=== PATIENT | male | born 1945 | race Caucasian/White ===

== ENCOUNTER 2020-01-28 08:32 | Outpatient (CLI) | payer MEDICARE, SELFPAY ==
--- NOTE | ~2020-01-28 | CT_ITS ---
EXAMINATION: CT chest abdomen pelvis w con DATE: 01/28/2020 09:21 INDICATION: Metastatic kidney cancer TECHNIQUE: Transaxial computed tomographic images of the chest, abdomen, and pelvis were obtained aft er the administration of 100 cc of Omnipaque 350 intravenous contrast. The dose-length product (DLP) was 1705.07 mGy-cm. Automated exposure control and iterative reconstruction technique were employed. COMPARISON: 07/16/2019, 01/18/2019 FINDINGS: CHEST CT: Again seen are greater than 10 stable nodules scattered throughout the lungs. The largest measures 1. 6 x 1.3 cm in the right upper lobe. There is no pleural effusion or pneumothorax. Bulky bilateral hil ar lymphadenopathy is not significantly changed. The largest hilar lymph node is on the left and natanael ures 4.9 x 3.8 cm. The heart size is normal. There is no pleural effusion or pneumothorax. There is s evere thoracic spondylosis. ABDOMEN/PELVIS CT: Cysts of the liver measure up to 2.6 cm and the left hepatic lobe. The spleen, pancreas, and gallblad jenny are normal. There are changes of right nephrectomy. The left kidney is unremarkable. Stable right adrenal nodules measure up to 10 mm. Masses of the left adrenal gland have enlarged. Although diffic ult to individually measure, the adrenal gland measures 3.5 cm in maximum axial dimension, previously 2.8 cm. No pathologically enlarged abdominal or pelvic lymph nodes are identified. There is no free intraperitoneal gas or evidence of bowel obstruction. There is severe lumbar spondylosis. IMPRESSION: 1. Worsening metastatic disease of the left adrenal gland. Stable metastatic disease of the thorax an d right adrenal gland. Reviewed, dictated and finalized at location A. 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 Worsening metastatic disease of the left adrenal gland. Stable metastatic di sease of the thorax and right adrenal gland.
[2020-01-28 09:09] LABS: Blood Urea Nitrogen 19 mg/dL (8-26); Estimated Glomerular Filt Rate 54
== END 2020-01-28 08:33 | disposition home or self-care (01) ==
LOC: ANHIMG 08:42
PROVIDERS: PCP Family Medicine; Visit Provider Internal Medicine Medical Oncology
DX: C64.9 Malignant neoplasm of unspecified kidney, except renal pelvis (principal)
CPT/HCPCS: 71260; 74177; Q9967

== ENCOUNTER 2020-07-27 08:38 | Outpatient (CLI) | payer MEDICARE, SELFPAY ==
--- NOTE | ~2020-07-27 | CT_ITS ---
EXAMINATION: CT chest abdomen pelvis w con DATE: 07/27/2020 09:33 INDICATION: Kidney cancer with metastases TECHNIQUE: Computed tomography (CT) of the chest, abdomen, and pelvis was performed with 100 mL Omnip aque-350 intravenous contrast. Automated exposure control and iterative reconstruction technique were employed. The dose-length product was 1601.10 mGy-cm. COMPARISON: None FINDINGS: CHEST CT: No no significant interval change in multiple pulmonary nodules scattered throughout both lungs or of bulky mediastinal and bilateral hilar heterogeneously enhancing lymphadenopathy. For reference AP wi ndow lymph node previously measured 5.5 x 5.2 x 3.6 cm and currently measures 5.2 x 5.2 x 3.5 cm and corresponding dimensions. A right perihilar nodule previously measured 3.4 x 3.6 x 2.7 cm and current ly measures 3.5 x 3.7 x 2.8 cm in corresponding dimensions. No new pulmonary nodules identified. Ther e is likely mucous plugging and increasing secondary discoid atelectasis at the lingula. Heart size i s normal. Atherosclerotic coronary artery calcification. No pericardial or pleural effusion. Small sl iding-type hiatal hernia. Thoracic aorta is normal in caliber with no dissection. Severe thoracic spo ndylosis. No suspicious lytic or blastic bone lesions. ABDOMEN/PELVIS CT: Small sliding-type hiatal hernia. No interval change in multiple hepatic cysts the largest measuring 2.5 cm. Diffuse hepatic steatosis. Gallbladder, spleen and pancreas are normal. Multiple bilateral en hancing adrenal nodules which have increased in size since the prior study. For reference the more po sterior nodule in the right adrenal gland has increased from 1.2 x 1.6 cm currently measuring 1.6 x 2 .1 cm. The inferior most nodule at the left adrenal gland has increased from 3.6 x 2.4 cm to currentl y measuring 4.7 x 2.9 cm. Status post right nephrectomy with no evident local recurrence at the nephr ectomy bed. Multiple parapelvic cysts at the otherwise normal left kidney. There is moderate colonic diverticulosis descending and sigmoid colon predominance but without adjacent inflammatory change to suggest diverticulitis. Small bowel and appendix are normal. Bladder is normal. Prostatomegaly. No f ree intraperitoneal gas or fluid. No pathologically enlarged abdominal or pelvic lymphadenopathy. The re is calcified atherosclerosis of the aorta and many of the other arteries. Mild lumbar dextroscolio sis. Severe lumbar spondylosis including L5 spondylolysis with bilateral pars intra-articular is defe cts and 8 mm anterolisthesis on S1. No interval change in a lucent lesion at the left side of L2 whic h demonstrated intense T1 fat signal on prior MRI consistent with a hemangioma. No other suspicious l ytic or blastic bone lesions. IMPRESSION: 1. Progression of likely metastatic disease with enlargement of multiple bilateral adrenal masses. 2. No significant interval change in thoracic metastatic disease including multiple bilateral pulmona ry nodules and bulky mediastinal and bilateral hilar lymphadenopathy. Reviewed, dictated and finalized at location A. IMPRESSION: 1. Progression of likely metastatic disease with enlargement of multiple bilate ral adrenal masses. 2. No significant interval change in thoracic metastatic disease including mult iple bilateral pulmonary nodules and bulky mediastinal and bilateral hilar lymp hadenopathy.
[2020-07-27 09:21] LABS: Estimated Glomerular Filt Rate > 60
== END 2020-07-27 08:39 | disposition home or self-care (01) ==
PROVIDERS: PCP Family Medicine; Visit Provider Internal Medicine Medical Oncology
DX: C64.9 Malignant neoplasm of unspecified kidney, except renal pelvis (principal)
CPT/HCPCS: 71260; 74177; Q9967

== ENCOUNTER → 2020-11-03 10:42 | Outpatient (CLI) | payer MEDICARE, SELFPAY ==
--- NOTE | ~2020-11-03 | CT_ITS ---
EXAMINATION: CT chest abdomen pelvis w con EXAM DATE: 11/03/2020 11:23 INDICATION: malignant neoplasm of kidney with metastasis . TECHNIQUE: Spiral CT of the chest, abdomen and pelvis was performed following intravenous injection o f 100 mL Omnipaque 350. Axial, coronal and sagittal images were reviewed. Coronal maximum intensity pixel images of chest reviewed. The dose-length product (DLP) for this examination was 1450.38 mGy- cm. The exposure was tailored according to patient size (auto mA exposure control), and iterative re construction (ASIR) was used as additional dose reduction technique. Comparison is made to prior exam ination from 07/27/2020. FINDINGS: CHEST: Multiple pathologically enlarged bilateral hilar and prevascular lymph nodes, but now these ar e predominantly centrally hypodense, necrotic. One of the larger prevascular lymph nodes measures 4.4 x 3.4 cm (was 4.9 x 3.5). The other lymph nodes also demonstrated some decrease in size. There is 5 mm left upper lobe nodule likely metastatic lesion, decreased from 10 mm in size on previous exam. Sc attered other pulmonary nodules have significantly decreased in size as well. There are no pleural or pericardial effusions. Tracheobronchial tree is patent. There is no pneumothorax. Heart normal in size. There is mild coronary arterial calcification, arterial sclerosis. ABDOMEN PELVIS: There are liver cysts. No suspicious liver lesions. Spleen, pancreas are unremarkable . Interval decrease in size of bilateral adrenal metastases, for example now on the left 2 contiguous lesions measures 2.9 x 1.9 cm versus 3.7 x 3.1 cm on prior study. Gallbladder is unremarkable. No biliary obstruction. Status post right-sided nephrectomy. No left hydronephrosis. The prostate is u nremarkable. The bladder is unremarkable. There is no retroperitoneal or pelvic lymphadenopathy. There is mild scattered arteriosclerotic disease. The appendix is normal. There is small sliding gastroesophageal hiatal hernia. There is moderate sca ttered colonic diverticulosis. There is no adjacent inflammatory change to suggest diverticulitis. No free intraperitoneal gas. Small L2 lucency probably hemangioma correlating with prior studies. T here is advanced thoracolumbar spondylosis. IMPRESSION: 1. Significant decrease in size of pulmonary metastases. 2. Mild decrease in size of mediastinal, hilar lymphadenopathy, and with development of extensive n ecrosis compared to solid appearance on prior study. 3. Decrease in size of bilateral necrotic adrenal metastases. Reviewed, dictated and finalized at location A. BAND ATTACHER IMPRESSION: 1. Significant decrease in size of pulmonary metastases. 2. Mild decrease in size of mediastinal, hilar lymphadenopathy, and with devel opment of extensive necrosis compared to solid appearance on prior study. 3. Decrease in size of bilateral necrotic adrenal metastases.
[2020-11-03 11:11] LABS: Estimated Glomerular Filt Rate > 60
== END ==
PROVIDERS: PCP Family Medicine; Visit Provider Internal Medicine Medical Oncology
DX: C64.9 Malignant neoplasm of unspecified kidney, except renal pelvis (principal); R91.8 Other nonspecific abnormal finding of lung field
CPT/HCPCS: 71260; 74177; Q9967

== ENCOUNTER 2021-01-19 06:47 | Outpatient (CLI) | payer MEDICARE, SELFPAY ==
--- NOTE | ~2021-01-19 | CT_ITS ---
EXAMINATION: CT chest abdomen pelvis w con DATE: 01/19/2021 07:27 INDICATION: Restaging of malignant renal neoplasm with metastasis TECHNIQUE: Computed tomography (CT) of the chest, abdomen, and pelvis was performed with 100 cc Omnip aque 350 intravenous contrast. Automated exposure control and iterative reconstruction technique were employed. Exam dose: 1598.89 mGy-cm total exam DLP. COMPARISON: 10/2020 CT chest abdomen pelvis FINDINGS: CHEST CT: There is interval mild improvement of mediastinal and bilateral hilar necrotic lymphadenopathy since 10/2020 including left prevascular lymph node mass measuring 3 x 4.2 cm currently compared to 3.3 x 4.5 cm on 10/2020, left hilar node measuring 12.6 x 19 mm currently compared to 14.9 x 22 mm on 2019 and right hilar lymphadenopathy measuring 24.6 x 31.4 mm currently, compared to 25 x 33.9 mm on 10/2020. Normal heart size. Trace pericardial effusion. No thoracic aortic aneurysm or dissection. There is interval severe stenosis of the left subclavian vein apparently due to thrombosis. The left brachiocephalic vein largely fills by collateral vessels. ABDOMEN/PELVIS CT: Multiple hepatic cysts are again noted, the largest in the lateral segment left hepatic lobe, measuri ng up to 2.4 cm dimension. No interval hepatic space-occupying mass lesion is evident. Normal splenic size. No pancreatic mass lesion, calcification or ductal dilatation. The gallbladder is unremarkable. No bile duct dilatation. Diminished size of left adrenal metastases since 11/03/2020. Right adrenal gland is unremarkable. Status post right nephrectomy. No soft tissue mass lesion is evident in the right nephrectomy bed. No left renal mass lesion is evident. No left urinary tract calculus or hydroureteronephrosis. The bladder is relatively evacuated with relatively high attenuation and 27 Hounsfield units of the b ladder contents. There is prostate enlargement. There is atherosclerotic calcification of the abdominal aorta but no abdominal aortic aneurysm. There are 2 left renal arteries. No intraperitoneal or retroperitoneal or pelvic mass lesion or adenopathy or ascites is evident. Small sliding hiatal hernia. No bowel obstruction, bowel wall thickening, pneumatosis or intraperiton eal free air. There are numerous diverticula primarily of the sigmoid and descending colon; no CT evidence of diver ticulitis. No evidence of appendicitis. Small fat-containing left inguinal hernia. Small fat-containing umbilical hernia. Degenerative disc disease in the lower cervical spine. Diffuse idiopathic skeletal hyperostosis of th e thoracic spine. Bilateral L5 pars interarticularis defects with grade 2 anterolisthesis and severe degenerative disc disease at L5-S1. There is very severe degenerative disc disease at T12-L1 and especially L1-2 and L2-3, with associate d mild retrolisthesis at L1-2 and L2-3. Moderately severe degenerative disc disease at L3-4. 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 Reviewed, dictated and finalized at location B. 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
[2021-01-19 07:17] LABS: Estimated Glomerular Filt Rate > 60
== END 2021-01-19 06:48 | disposition home or self-care (01) ==
PROVIDERS: PCP Family Medicine Adolescent Medicine; Visit Provider Internal Medicine Medical Oncology
DX: C64.9 Malignant neoplasm of unspecified kidney, except renal pelvis (principal); K76.9 Liver disease, unspecified; K44.9 Diaphragmatic hernia without obstruction or gangrene; K57.30 Diverticulosis of large intestine without perforation or abscess without bleeding; M51.36 Other intervertebral disc degeneration, lumbar region; M51.34 Other intervertebral disc degeneration, thoracic region; M50.30 Other cervical disc degeneration, unspecified cervical region
CPT/HCPCS: 71260; 74177; Q9967

== ENCOUNTER 2021-02-08 14:19 | Outpatient (CLI) | payer MEDICARE, SELFPAY ==
--- NOTE | ~2021-02-08 | US_ITS ---
EXAMINATION: US venous doppler UE DATE: 02/08/2021 15:11 INDICATION: Left upper extremity pain TECHNIQUE: Alonso scale images with and without compression and Doppler images of the left upper extrem ity veins were obtained. COMPARISON: None. FINDINGS: The left internal jugular vein, subclavian vein, axillary vein, brachial veins, basilic vein, cephali c vein, radial vein, and ulnar vein are patent.] IMPRESSION: 1. Patent left upper extremity veins. No evidence of deep venous thrombosis. Reviewed, dictated and finalized at location A. CLUTCH REBUILDER
== END 2021-02-08 14:20 | disposition home or self-care (01) ==
PROVIDERS: PCP Family Medicine Adolescent Medicine; Visit Provider Internal Medicine Medical Oncology
DX: M79.602 Pain in left arm (principal); I82.90 Acute embolism and thrombosis of unspecified vein
CPT/HCPCS: 93971

== ENCOUNTER 2021-04-23 07:25 | Outpatient (CLI) | payer MEDICARE, SELFPAY ==
--- NOTE | ~2021-04-23 | CT_ITS ---
EXAMINATION: CT chest abdomen pelvis w con DATE: 04/23/2021 08:05 INDICATION: Primary malignant neoplasm of the kidney with metastases TECHNIQUE: Transaxial computed tomographic images of the chest, abdomen, and pelvis were obtained aft er the administration of 100 cc of Omnipaque 350 intravenous contrast. The dose-length product (DLP) was 1493.28 mGy-cm. Automated exposure control and iterative reconstruction technique were employed. COMPARISON: 01/19/2021 FINDINGS: CHEST CT: There are multiple stable nodules scattered throughout the lungs. The largest measures 8 mm in the ri ght upper lobe on image 36. Bulky mediastinal and bilateral hilar lymphadenopathy is unchanged. There are patchy opacities of the lingula and lower lobes, likely infectious or inflammatory. There is no pleural effusion or pneumothorax. The heart size is normal. Calcified atherosclerosis is noted. There is severe thoracic spondylosis. ABDOMEN/PELVIS CT: There are changes of right nephrectomy. Cysts of the liver measure up to 2.6 cm in the left hepatic l obe. The spleen, pancreas, and gallbladder are normal. Masses of the left adrenal gland are stable an d measure up to 2.6 cm. The right adrenal gland is unremarkable. The left kidney is normal. A retroao rtic left renal vein is noted. No pathologically enlarged abdominal or pelvic lymph nodes are identif ied. There is no free intraperitoneal gas or evidence of bowel obstruction. The appendix is normal. T here is severe lumbar spondylosis. There are bilateral L5 pars defects with grade 1 anterolisthesis o f L5 on S1. IMPRESSION: 1. Stable metastatic disease involving the lungs, mediastinal and bilateral hilar lymph nodes, and th e left adrenal gland. Reviewed, dictated and finalized at location A. IMPRESSION: 1. Stable metastatic disease involving the lungs, mediastinal and bilateral hil ar lymph nodes, and the left adrenal gland.
[2021-04-23 13:16] LABS: Estimated Glomerular Filt Rate > 60
== END 2021-04-23 07:26 | disposition home or self-care (01) ==
PROVIDERS: PCP Family Medicine Adolescent Medicine; Visit Provider Internal Medicine Medical Oncology
DX: C64.9 Malignant neoplasm of unspecified kidney, except renal pelvis (principal)
CPT/HCPCS: 71260; 74177; Q9967

== ENCOUNTER 2021-04-25 13:50 | Outpatient (CLI) | payer MEDICARE, SELFPAY ==
[2021-04-25 14:34] LABS: Basophils Percent Auto 0.6 % (0.2-1.2); Eosinophils Absolute Auto 0.2 K/mm3 (0-0.3); Eosinophils Percent Auto 3.2 % (0-4.4); Hematocrit 41.5 % (42.0-52.0); Hemoglobin 13.9 g/dL (14.0-18.0); Immature Granulocyte Absolute 0.02 K/mm3 (0.00-0.031); Immature Granulocyte Percent A 0.4 % (0-0.5); Lymphocytes Absolute Auto 1.64 K/mm3 (0.9-3.2); Lymphocytes Percent Auto 32.9 % (18.3-44.2); Mean Corpuscular HGB Conc 33.5 g/dl (32-36); Mean Corpuscular Hemoglobin 34.6 pg (26-34); Mean Corpuscular Volume 103.2 fl (80-100); Monocytes Absolute Auto 0.5 K/mm3 (0.1-0.6); Monocytes Percent Auto 10.8 % (2.6-8.5); Neutrophils Absolute Auto 2.6 K/mm3 (1.3-6.7); Neutrophils Percent Auto 52.1 % (45.5-73.1); Platelet Count Result 155 k/mm3 (150-375); Red Blood Count 4.02 M/mm3 (4.6-6.20); Red Cell Distribution Width 13.7 % (11.5-14.5)
[2021-04-25 14:48] LABS: Alanine Aminotransferase 24 U/L (4-50); Albumin Level 3.8 g/dL (3.5-5.1); Alkaline Phosphatase 85 U/L (38-126); Anion Gap 7 mmol/L (8-16); Aspartate Amino Transferase 30 U/L (17-59); Bilirubin,Total 0.6 mg/dL (0.2-1.3); Blood Urea Nitrogen 17 mg/dL (9-20); Calcium 8.9 mg/dL (8.4-10.2); Carbon Dioxide 28 mmol/L (22-30); Chloride 104 mmol/L (98-107); Estimated Glomerular Filt Rate > 60; Glucose 96 mg/dL (75-110); Potassium 4.2 mmol/L (3.4-5.0); Sodium 139 mmol/L (137-145)
== END 2021-04-25 13:51 | disposition home or self-care (01) ==
LOC: ANHLAB 13:53
PROVIDERS: PCP Family Medicine Adolescent Medicine; Visit Provider Internal Medicine Medical Oncology
DX: C64.9 Malignant neoplasm of unspecified kidney, except renal pelvis (principal)
CPT/HCPCS: 36415; 80053; 85025

== ENCOUNTER 2021-06-22 15:09 | Outpatient (CLI) | payer MEDICARE, SELFPAY ==
--- NOTE | ~2021-06-22 | XR_ITS ---
XR knee RT min 4V DATE: 06/22/2021 15:51 INDICATION: Two-year checkup. Right total knee arthroplasty TECHNIQUE: [place], standing AP, PA and lateral views COMPARISON: None FINDINGS: Status post right total knee arthroplasty with patellar resurfacing. No fracture or dislocation or joint effusion. No periosteal reaction or bone destruction. IMPRESSION: Right total knee arthroplasty Reviewed, dictated and finalized at location A.
--- NOTE | ~2021-06-22 | XR_ITS ---
XR knee LT min 4V DATE: 06/22/2021 15:51 INDICATION: Two-year checkup, left total knee arthroplasty TECHNIQUE: [place], standing AP, PA and lateral views COMPARISON: 04/19/2014 left knee FINDINGS: Status post left total knee arthroplasty with patellar resurfacing. No fracture or dislocation or joint effusion, periosteal reaction or bone destruction. IMPRESSION: Left total knee arthroplasty Reviewed, dictated and finalized at location A.
== END 2021-06-22 15:10 | disposition home or self-care (01) ==
PROVIDERS: PCP Family Medicine Adolescent Medicine; Visit Provider Orthopaedic Surgery
DX: Z09 Encounter for follow-up examination after completed treatment for conditions other than malignant neoplasm (principal)
CPT/HCPCS: 73564

== ENCOUNTER 2021-07-16 08:03 | Outpatient (CLI) | payer MEDICARE, SELFPAY ==
--- NOTE | ~2021-07-16 | CT_ITS ---
EXAMINATION: CT chest abdomen pelvis w con DATE: 07/16/2021 08:37 INDICATION: Malignant neoplasm of the kidney with metastatic disease. TECHNIQUE: Computed tomography (CT) of the chest, abdomen, and pelvis was performed with 100 mL Omnip aque-350 intravenous contrast. Automated exposure control and iterative reconstruction technique were employed. The dose-length product was 1495.50 mGy-cm. COMPARISON: 04/23/2021 and 07/27/2020 FINDINGS: CHEST CT: There are several scattered subcentimeter bilateral pulmonary nodules which are without significant i nterval change but which are decreased since study dated 07/27/20. Thin linear bands of likely discoid atelectasis, though within in the right middle lobe and with thicker band at the lingula. Small calc ified left lower lobe nodule consistent with old granulomatous disease. No interval change in multipl e heterogeneously enhancing, centrally necrotic bilateral hilar and mediastinal lymph nodes, the larg est a 4.7 x 3.4 cm prevascular lymph node along the pulmonary outflow tract, 4.4 x 3.6 cm at the left hilum and 2.8 x 2.5 cm and 2.9 x 2.7 cm at the right hilum. The enhancing soft tissue components of the enlarged lymph nodes have significantly decreased since 07/27/2020. Heart size is normal. Atherosc lerotic coronary artery calcification. Very small pericardial effusion. No pleural effusion. Thoracic aorta is normal in caliber with no dissection. Small sliding-type hiatal hernia. Mild thoracic kypho sis with severe spondylosis. ABDOMEN/PELVIS CT: Multiple well-defined low-attenuation likely hepatic cysts the largest measuring 2.6 cm . Gallbladder , spleen, pancreas and left kidney are normal. Status post right nephrectomy. Multiple cystic nodules at the left adrenal gland, the largest measuring up to 2.6 cm. Unchanged mild nodular thickening of the right adrenal gland. Both appear significantly decreased compared with CT dated 07/27/2020 consist ent with response to treatment of metastatic disease. Small bowel and appendix are normal. There is p rominent diverticulosis along the sigmoid and descending colon without adjacent inflammatory change t o suggest diverticulitis. Mild fatty infiltration of the bladder wall. Prostatomegaly. No free intrap eritoneal gas or fluid. No pathologically enlarged abdominal or pelvic lymphadenopathy. Small fat-con taining left inguinal hernia. Severe lumbar spondylosis. L5 spondylolysis with bilateral pars intra-a rticular is defects and 9 mm anterolisthesis on S1. IMPRESSION: 1. Significant interval change in multiple pulmonary nodules, mediastinal and bilateral hilar lymph n odes and bilateral adrenal nodules all of which are a decrease in size or in the degree of soft tissu e component since study dated 07/27/20 consistent with stable treated metastatic disease. 2. Status post right nephrectomy for reported renal cell carcinoma. 3. Diverticulosis. 4. Small sliding-type hiatal hernia. Reviewed, dictated and finalized at location A. IMPRESSION: 1. Significant interval change in multiple pulmonary nodules, mediastinal and b ilateral hilar lymph nodes and bilateral adrenal nodules all of which are a dec rease in size or in the degree of soft tissue component since study dated consistent with stable treated metastatic disease. 2. Status post right nephrectomy for reported renal cell carcinoma. 3. Diverticulosis. 4. Small sliding-type hiatal hernia.
[2021-07-16 08:35] LABS: Estimated Glomerular Filt Rate > 60
== END 2021-07-16 08:04 | disposition home or self-care (01) ==
PROVIDERS: PCP Family Medicine Adolescent Medicine; Visit Provider Internal Medicine Medical Oncology
DX: C64.9 Malignant neoplasm of unspecified kidney, except renal pelvis (principal); K57.30 Diverticulosis of large intestine without perforation or abscess without bleeding; K44.9 Diaphragmatic hernia without obstruction or gangrene; R91.8 Other nonspecific abnormal finding of lung field
CPT/HCPCS: 71260; 74177; Q9967

== ENCOUNTER 2021-10-05 06:58 | Outpatient (CLI) | payer MEDICARE, SELFPAY ==
--- NOTE | ~2021-10-05 | CT_ITS ---
EXAMINATION: CT chest abdomen pelvis w con DATE: 10/05/2021 07:38 INDICATION: Malignant neoplasm of the kidney TECHNIQUE: Transaxial computed tomographic images of the chest, abdomen, and pelvis were obtained aft er the administration of 100 cc of Omnipaque 350 intravenous contrast. The dose-length product (DLP) was 1426.81 mGy-cm. Automated exposure control and iterative reconstruction technique were employed. COMPARISON: 07/16/2021 FINDINGS: CHEST CT: Again seen are multiple stable pulmonary nodules scattered throughout the lungs, the largest of which measures 8 mm in the right upper lobe on image 36. No new pulmonary nodules are identified. There is stable bulky bilateral hilar and mediastinal lymphadenopathy. The heart size is normal. Calcified at herosclerosis is noted. There is severe thoracic spondylosis. ABDOMEN/PELVIS CT: There are changes of right nephrectomy. Cysts of the liver measure up to 2.3 cm in the left hepatic l obe. The spleen, pancreas, gallbladder, and right adrenal gland are normal. Stable masses of the left adrenal gland measure up to 2.6 cm. The left kidney is unremarkable. There is calcified atherosclero sis of the aorta and many of the other arteries. No pathologically enlarged abdominal or pelvic lymph nodes are identified. There is no free intraperitoneal gas or evidence of bowel obstruction. The gisela endix is normal. There are bilateral L5 pars defects with grade 1 anterolisthesis of L5 on S1. There is severe lumbar spondylosis. A tiny fat-containing umbilical hernia is noted. IMPRESSION: 1. Stable metastatic disease involving the lungs, mediastinal and hilar lymph nodes, and left adrenal gland. Reviewed, dictated and finalized at location B. IMPRESSION: 1. Stable metastatic disease involving the lungs, mediastinal and hilar lymph n odes, and left adrenal gland.
[2021-10-05 07:28] LABS: Estimated Glomerular Filt Rate > 60
== END 2021-10-05 06:59 | disposition home or self-care (01) ==
PROVIDERS: PCP Family Medicine Adolescent Medicine; Visit Provider Internal Medicine Medical Oncology
DX: C64.9 Malignant neoplasm of unspecified kidney, except renal pelvis (principal); C78.00 Secondary malignant neoplasm of unspecified lung
CPT/HCPCS: 71260; 74177; Q9967

== ENCOUNTER 2021-12-26 10:43 | Outpatient (CLI) | payer MEDICARE, SELFPAY ==
--- NOTE | ~2021-12-26 | CT_ITS ---
EXAMINATION: CT diagnostic chest wo con DATE: 12/26/2021 11:09 INDICATION: Pulmonary masses follow-up; primary malignant neoplasm of the kidney with metastases TECHNIQUE: Computed tomography (CT) of the chest was performed without intravenous contrast. Automate d exposure control and iterative reconstruction technique were employed. Exam dose: 357.51 mGy-cm to ascencion exam DLP. COMPARISON: 10/05/2021 CT chest abdomen pelvis FINDINGS: There are scattered bilateral pulmonary nodules which are stable or minimally diminished in size since 10/05/2021. No interval pulmonary mass lesion is evident. Mild improvement of atelectasis in the lingula and stable focal atelectasis and/or infiltrate in the posterior basilar right lower lobe. Stable prevascular and aortopulmonary window and bilateral hilar adenopathy with areas of necrosis as well as some calcifications again noted. Normal heart size. No thoracic aortic aneurysm or dissection. Coronary artery calcification. Stable hepatic cysts. Small sliding hiatal hernia. Stable left adrenal masses. Prominent degenerative disc disease in the lower cervical spine. Diffuse idiopathic skeletal hyperostosis of the thoracic spine. Severe degenerative disc disease at t he included upper lumbar spine. IMPRESSION: Stable and slightly improved bilateral pulmonary nodules since 10/05/2021 Stable aortopulmonary window, prevascular bilateral lymphadenopathy and left adrenal masses since 10/05/2021 Reviewed, dictated and finalized at Location [facility]. Reviewed, dictated and finalized at location A. 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
== END 2021-12-26 10:44 | disposition home or self-care (01) ==
PROVIDERS: PCP Family Medicine Adolescent Medicine; Visit Provider Internal Medicine Medical Oncology
DX: R91.8 Other nonspecific abnormal finding of lung field (principal)
CPT/HCPCS: 71250

== ENCOUNTER 2022-02-22 07:32 | Outpatient (CLI) | payer MEDICARE, SELFPAY ==
--- NOTE | ~2022-02-22 | CT_ITS ---
EXAMINATION: CT chest abdomen pelvis w con DATE: 02/22/2022 08:13 INDICATION: Malignant neoplasm of the kidney and lung TECHNIQUE: Transaxial computed tomographic images of the chest, abdomen, and pelvis were obtained aft er the administration of 100 cc of Omnipaque 350 intravenous contrast. The dose-length product (DLP) was 3429.47 mGy-cm. Automated exposure control and iterative reconstruction technique were employed. COMPARISON: 12/26/2021, 10/05/2021 FINDINGS: CHEST CT: Multiple stable pulmonary nodules are again noted scattered throughout the lungs, the largest of whic h measures 7 mm in the right upper lobe. No new pulmonary nodules are identified. Bilateral hilar and mediastinal lymphadenopathy persists. There is slight decrease in size of an aorticopulmonary window lymph node which measures 4.2 cm, previously 4.6 cm. The heart size is normal. There are trace pleur al effusions. No pneumothorax is identified. Calcified coronary artery atherosclerosis is noted. Ther e is severe thoracic spondylosis. ABDOMEN/PELVIS CT: Cysts of the liver measure up to 2.3 cm in the left hepatic lobe. There is a small sliding hiatal her delfina. The spleen, pancreas, gallbladder, and right adrenal gland are normal. There are changes of righ t nephrectomy. There are masses of the left adrenal gland which measure up to 2.1 cm, previously 2.6 cm. The left kidney is unremarkable. No pathologically enlarged abdominal or pelvic lymph nodes are i dentified. There is calcified atherosclerosis of the aorta and many of the other arteries. There is n o free intraperitoneal gas or evidence of bowel obstruction. Bilateral L5 pars defects are again note d with grade 1 anterolisthesis of L5 on S1. There is severe lumbar spondylosis. IMPRESSION: 1. Metastatic disease involving the lungs, mediastinal and hilar lymph nodes, and left adrenal gland with slight decrease in size of adrenal masses and aorticopulmonary window lymph nodes. Reviewed, dictated and finalized at location B. IMPRESSION: 1. Metastatic disease involving the lungs, mediastinal and hilar lymph nodes, a nd left adrenal gland with slight decrease in size of adrenal masses and aortic opulmonary window lymph nodes.
[2022-02-22 07:55] LABS: Estimated Glomerular Filt Rate > 60
== END 2022-02-22 07:33 | disposition home or self-care (01) ==
LOC: ANHIMG 07:37
PROVIDERS: PCP Family Medicine Adolescent Medicine; Visit Provider Internal Medicine Medical Oncology
DX: C64.9 Malignant neoplasm of unspecified kidney, except renal pelvis (principal); C78.01 Secondary malignant neoplasm of right lung; C78.02 Secondary malignant neoplasm of left lung
CPT/HCPCS: 71260; 74177; Q9967

== ENCOUNTER 2022-04-15 08:20 | Emergency (ER) | payer MEDICARE, SELFPAY ==
--- NOTE | ~2022-04-15 | XR_ITS ---
EXAMINATION: XR chest 1V INDICATION: Weakness TECHNIQUE: AP view of the chest is obtained. COMPARISON: CT, 02/22/2022 FINDINGS: There are minimal airspace opacities of the left lung base. There is no pleural effusion or pneumothorax. The heart size is normal. Bilateral hilar lymphadenopathy persists. The visualized oss eous structures are unremarkable. IMPRESSION: 1. Mild atelectasis of the left lung base. 2. Bilateral hilar lymphadenopathy, consistent with metastatic disease. Reviewed, dictated and finalized at location A.
--- NOTE | ~2022-04-15 | CT_ITS ---
EXAMINATION: CTA brain carotid DATE: 04/15/2022 09:25 INDICATION: Weakness in the legs. TECHNIQUE: Computed tomographic angiography (CTA) of the head was performed without and with 100 mL O mnipaque-350 intravenous contrast. CTA of the neck was performed with intravenous contrast. Automated exposure control and iterative reconstruction technique were employed. The dose-length product was 1 934.15 mGy-cm. Maximum intensity projection and volume rendered 3D-reconstructions were created by florencia martinez technologist on a separate workstation. COMPARISON: Chest CT 02/22/2022 FINDINGS: HEAD CTA: There are areas of low-attenuation in the white matter of the medial posterior frontal lobe s bilaterally. There is no intracranial hemorrhage, acute infarction, or abnormal intracranial mass l esion. The ventricles are normal in size. There is mucosal thickening in the paranasal sinuses. The o rbits are normal. There is a trace right mastoid effusion. The vertebral arteries are codominant. The re is no significant stenosis of basilar artery or the posterior cerebral arteries. There is no signi ficant stenosis of the intracranial internal carotid arteries or anterior or middle cerebral arteries . Anterior communicating artery is normal. Posterior communicating arteries are not identified. There is no aneurysm. NECK CTA: There is a 7 mm nodule in left lung upper lobe. There is a 5 mm nodule at left lung upper l obe. There are no pathologically enlarged lymph nodes. There is no significant stenosis of the verteb ral arteries. There is mild plaque in the proximal internal carotid arteries. There is 0% stenosis of the proximal right internal carotid artery relative to normal distal artery lumen diameter (NASCET c riteria). There is 0% stenosis of the proximal left internal carotid artery relative to normal distal artery lumen diameter. There is severe cervical spondylosis. IMPRESSION: 1. Low-attenuation in the white matter of the medial posterior frontal lobes bilaterally, which may b e seen with mild chronic small vessel ischemic disease, vasogenic edema from occult metastatic diseas e, or age-indeterminate infarcts. Brain MRI without and with contrast is recommended. 2. No aneurysm or significant intracranial arterial stenosis. 3. Stable pulmonary nodules, consistent with metastatic disease. 4. 0% stenosis of the proximal internal carotid arteries relative to normal distal artery lumen diame ters (NASCET criteria). Reviewed, dictated and finalized at location B. IMPRESSION: 1. Low-attenuation in the white matter of the medial posterior frontal lobes bi laterally, which may be seen with mild chronic small vessel ischemic disease, v asogenic edema from occult metastatic disease, or age-indeterminate infarcts. B rain MRI without and with contrast is recommended. 2. No aneurysm or significant intracranial arterial stenosis. 3. Stable pulmonary nodules, consistent with metastatic disease. 4. 0% stenosis of the proximal internal carotid arteries relative to normal dis ascencion artery lumen diameters (NASCET criteria).
--- NOTE | 2022-04-15 08:25 | PC.NURSE ---
Patient brought to stroke stop by Cat, sign poster d/t nature of cc. Patient evaluated by Dr. Vargas who decided against called a code stroke at this time.
[2022-04-15 08:32] VITALS: BP 181/90; PULSE 67; RESP 17; TEMP 36.6; O2SAT 99
--- NOTE | 2022-04-15 08:40 | ECG_ITS ---
Measurements Intervals [place] Rate: 59 P: 24 DC: 173 QRS: -48 QRSD: 116 T: 20 QT: 436 QTc: 433 Interpretive Statements SINUS BRADYCARDIA LEFT ANTERIOR FASCICULAR BLOCK ABNORMAL ECG Electronically Signed On 04-15-2022 9:06:13 CDT by Rafael Dunn D.O.
[2022-04-15 08:41] VITALS: BP 174/84; PULSE 66; RESP 13
--- NOTE | 2022-04-15 08:50 | PC.NURSE ---
BS 120
[2022-04-15 08:57] LABS: Basophils Absolute Auto 0.1 K/mm3 (0.0-0.1); Basophils Percent Auto 1.2 % (0.2-1.2); Eosinophils Absolute Auto 0.4 K/mm3 (0-0.3); Eosinophils Percent Auto 7.1 % (0-4.4); Hematocrit 42.7 % (42.0-52.0); Hemoglobin 13.8 g/dL (14.0-18.0); Immature Granulocyte Absolute 0.04 K/mm3 (0.00-0.031); Immature Granulocyte Percent A 0.7 % (0-0.5); Lymphocytes Absolute Auto 1.77 K/mm3 (0.9-3.2); Lymphocytes Percent Auto 30.5 % (18.3-44.2); Mean Corpuscular HGB Conc 32.3 g/dl (32-36); Mean Corpuscular Hemoglobin 31.9 pg (26-34); Mean Corpuscular Volume 98.8 fl (80-100); Monocytes Absolute Auto 0.5 K/mm3 (0.1-0.6); Monocytes Percent Auto 9.1 % (2.6-8.5); Neutrophils Percent Auto 51.4 % (45.5-73.1); Platelet Count Result 174 k/mm3 (150-375); Red Blood Count 4.32 M/mm3 (4.6-6.20); Red Cell Distribution Width 15.3 % (11.5-14.5); White Blood Count 5.8 K/mm3 (4.5-10.0)
[2022-04-15 09:01] VITALS: BP 174/84; PULSE 66; RESP 13; O2SAT 98
[2022-04-15 09:08] LABS: Alanine Aminotransferase 28 U/L (6-50); Albumin Level 3.7 g/dL (3.5-5.1); Alkaline Phosphatase 91 U/L (38-126); Anion Gap 4 mmol/L (8-16); Aspartate Amino Transferase 37 U/L (17-59); Bilirubin,Total 0.4 mg/dL (0.2-1.3); Blood Urea Nitrogen 14 mg/dL (9-20); Calcium 8.1 mg/dL (8.4-10.2); Carbon Dioxide 27 mmol/L (22-30); Chloride 106 mmol/L (98-107); Estimated CRCL calculation 71 ml/min; Estimated Glomerular Filt Rate > 60; Glucose 109 mg/dL (65-110); Potassium 3.8 mmol/L (3.4-5.0); Sodium 137 mmol/L (137-145)
[2022-04-15 09:20] LABS: Troponin I < 0.012 ng/mL (0.000-0.034)
--- NOTE | 2022-04-15 09:23 | PC.NURSE ---
Pt to XRAY/CT SCAN via stretcher at this time.
[2022-04-15 09:25] LABS: INR 1.1; Prothrombin Time 14.1 Seconds (11.1-14.7)
[2022-04-15] MEDS: MECLIZINE HCL 25 MG TABLET PO (09:27)
[2022-04-15 09:29] VITALS: BP 153/71; PULSE 79; RESP 12; O2SAT 99
--- NOTE | 2022-04-15 09:32 | PC.NURSE ---
Attempted to reach x2 per pt request to notify her he is here. Her name is Mee and phone given per is [phone], no answer via this number and no place to leave .
[2022-04-15 09:56] VITALS: BP 143/80; PULSE 57; RESP 20; O2SAT 97
[2022-04-15 10:34] LABS: Appearance Urine Clear (Clear); Bilirubin Urine Negative (Negative); Blood Urine Negative (Negative); Color Urine Yellow (Yellow); Glucose Urine UA Negative (Negative); Ketones Urine Negative (Negative); Leukocyte Esterase Ur Negative LEU/UL (Negative); Nitrate Urine Negative (Negative); Protein Urine Trace mg/dL (Negative)
--- NOTE | 2022-04-15 10:40 | ED.NEUROSD ---
HPI - Neuro Symptoms/Deficit General Chief Complaint: Neuro Symptoms/Deficit Stated Complaint: Balance Issues, Leg Heavyness Time Seen by Provider: 04/15/22 08:36 Source: patient History of Present Illness HPI Narrative: Patient presents with dizziness described sensation of feeling off balance as well as lower extremity heaviness. Reports she has intermittent symptoms like this and feels its related to his chemotherapy medications as well as his prostate medications as it has been a known side effect. Today symptoms seem more severe than usual and so he came to the ER for further evaluation. He reports chronic paresthesias in his toes but no acute changes he denies focal weakness slurring of his words or syncope. Denies any chest pain or headache. Denies any recent fevers, cough, congestion. Related Data Home Medications Medication Instructions Recorded Confirmed finasteride 5 mg tablet 5 mg PO DAILY 08/09/20 08/09/20 pazopanib 200 mg tablet 200 mg PO DAILY 08/09/20 08/09/20 tamsulosin 0.4 mg capsule 0.4 mg PO DAILY 08/09/20 08/09/20 triamcinolone acetonide 55 mcg 1 spray NASAL DAILY 08/09/20 08/09/20 nasal spray aerosol cabozantinib [Cabometyx] mg PO 04/15/22 Allergies Allergy/AdvReac Type Severity Reaction Status Date / Time cefdinir Allergy Unknown Unknown Verified 04/15/22 08:52 Cephalosporins Allergy Unknown Unknown Verified 04/15/22 08:52 Penicillins Allergy Unknown Unknown Verified 04/15/22 08:52 Review of Systems Review of Systems: CONSTITUTIONAL: Denies fever, chills, or sweats. EYES: Denies visual changes, redness, or discharge. ENT: Denies rhinorrhea, congestion, sore throat, or otalgia. CARDIOVASCULAR: Denies chest pain, palpitations, or edema. RESPIRATORY: Denies cough or dyspnea. GASTROINTESTINAL: Denies abdominal pain, nausea, vomiting, or diarrhea. GENITOURINARY: Denies dysuria or hematuria. SKIN: Denies rash or itching. MUSCULOSKELETAL: Denies back pain, joint pain, or myalgia. NEUROLOGIC: Denies headache, or focal weakness. PSYCHIATRIC: Denies anxiety or depression. 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 HEAD: Normocephalic, atraumatic. EYES: PERRLA and EOMI. ENT: Nares clear, no rhinorrhea or epistaxis. Mucous membranes moist. NECK: Supple. No masses. No JVD CHEST: Clear to auscultation. No respiratory distress. No wheezes rales or rhonchi HEART: Regular rate and rhythm. No murmur heard. Normal peripheral pulses. ABDOMEN: Soft, nontender, nondistended, normal active bowel sounds. EXTREMITIES: Normal range of motion. No edema. SKIN: Warm, dry, no rash. NEURO: Cranial nerves II through XII are intact patient is 5 out of 5 strength in all extremities sensation intact to light touch in all extremities no dysdiadochokinesia
[2022-04-15 10:48] LABS: Mucus Urine Rare /lpf; RBC Urine 0-2 /hpf (0-2); Squamous Epithelial Cell Urine Rare /hpf (Few); WBC Urine 0-3 /hpf
[2022-04-15 10:58] LABS: Add Urine Microscopic? NO
[2022-04-15 11:08] VITALS: BP 136/69; PULSE 60; RESP 17; O2SAT 97
[2022-04-15 11:16] LABS: Glucose Point of Care 120 mg/dl (65-105)
== END 2022-04-15 11:09 | disposition home or self-care (01) ==
PROVIDERS: Emergency Provider Emergency Medicine; PCP Family Medicine Adolescent Medicine
DX: R42 Dizziness and giddiness (principal); R29.898 Other symptoms and signs involving the musculoskeletal system; C64.9 Malignant neoplasm of unspecified kidney, except renal pelvis; C79.9 Secondary malignant neoplasm of unspecified site; N40.1 Benign prostatic hyperplasia with lower urinary tract symptoms; N13.8 Other obstructive and reflux uropathy; Z96.659 Presence of unspecified artificial knee joint; R00.1 Bradycardia, unspecified; I44.4 Left anterior fascicular block; Z79.899 Other long term (current) drug therapy
CPT/HCPCS: 36415; 70496; 70498; 71045; 80053; 81003; 82948; 84484; 85025; 85610; 85730; 93005; 99284; A9270; Q9967

== ENCOUNTER 2022-06-19 13:36 | Outpatient (CLI) | payer MEDICARE, SELFPAY ==
--- NOTE | ~2022-06-19 | CT_ITS ---
EXAMINATION: CT chest abdomen pelvis w con DATE: 06/19/2022 14:12 INDICATION: Renal malignant neoplasm with metastasis TECHNIQUE: Computed tomography (CT) of the chest, abdomen, and pelvis was performed without intraveno us contrast. Automated exposure control and iterative reconstruction technique were employed. Exam do se: 1470.58 mGy-cm total exam DLP. COMPARISON: AP chest on 04/15/2022 02/22/2022 CT chest abdomen pelvis FINDINGS: CHEST CT: Stable occasional bilateral pulmonary masses, measuring up to approximately 8 mm in the left upper lo be, not significantly changed since 02/22/2022. No new pulmonary nodules are identified. Chronic discoid atelectasis and/or scarring in the lower lobes, right greater than left. No pulmonary consolidation. Slight decreased size of left aortopulmonary window node, measuring 2.5 x 3.4 cm currently compared t o 2.6 x 4 cm on 02/22/2022. Minimally diminished left hilar adenopathy, stable right hilar adenopathy since 02/22/2022. Normal heart size. No thoracic aortic aneurysm or dissection. No pericardial or pleural effusion or pneumothorax. ABDOMEN/PELVIS CT: Stable multiple probable hepatic cysts. No interval hepatic space by mass lesion. The gallbladder is present. No bile duct or pancreatic duct dilatation. No pancreatic mass lesion or calcification. Norm al splenic size. Stable left adrenal mass is. Status post right nephrectomy. No left renal mass lesion is noted. No left ureteral calculus Prostate enlargement. The urinary bladder is unremarkable. There is diverticula of sigmoid and descending colon; no CT evidence of diverticulitis. Normal appendix. No bowel obstruction, bowel wall thickening, pneumatosis or intraperitoneal free air . Very small fat-containing umbilical hernia. No abdominal aortic aneurysm. No intraperitoneal or retroperitoneal or pelvic mass lesion or adenopat hy or ascites. Small fat-containing left inguinal hernia. Bilateral L5 pars interarticularis defects with grade 1 anterolisthesis and severe degenerative disea se at L5-S1. Severe degenerative disc disease and mild retrolisthesis at L1-2 and L2-3, moderately severe degenera tive disc disease L3-4 and mild degenerative disease at L4-5. Diffuse idiopathic skeletal hyperostosis of the thoracic spine. Severe degenerative disease at C6-7, prominent degenerative disease at C5-6. No suspicious osteolytic or osteoblastic lesions are noted. IMPRESSION: Stable pulmonary masses Slight decreased size of left aortopulmonary window node since 02/22/2022; otherwise no significant ch umair since 02/22/2022 Reviewed, dictated and finalized at Location A. Reviewed, dictated and finalized at location B. IMPRESSION: Stable pulmonary masses Slight decreased size of left aortopulmonary window node since 02/22/2022; other ku no significant change since 02/22/2022
[2022-06-19 14:05] LABS: Estimated Glomerular Filt Rate > 60
== END 2022-06-19 13:37 | disposition home or self-care (01) ==
PROVIDERS: PCP Family Medicine Adolescent Medicine; Visit Provider Internal Medicine Medical Oncology
DX: C64.9 Malignant neoplasm of unspecified kidney, except renal pelvis (principal); C78.01 Secondary malignant neoplasm of right lung; C78.02 Secondary malignant neoplasm of left lung
CPT/HCPCS: 71260; 74177; Q9967

== ENCOUNTER 2022-09-12 08:35 | Outpatient (CLI) | payer MEDICARE, SELFPAY ==
--- NOTE | ~2022-09-12 | CT_ITS ---
EXAMINATION: CT chest abdomen pelvis w con DATE: 09/12/2022 09:08 INDICATION: Malignant neoplasm of kidney with metastasis from kidney. TECHNIQUE: Computed tomography (CT) of the chest, abdomen, and pelvis was performed with 100 mL Omnip aque 350 intravenous contrast. Automated exposure control and iterative reconstruction technique were employed. The dose-length product was 1679.42 mGy-cm. COMPARISON: CT chest, abdomen, and pelvis 06/19/2022 FINDINGS: CHEST CT: There are greater than 10 nodules in the lungs measuring up to 7 mm, stable from 06/19/22. Calcified p ulmonary nodules are consistent with old granulomatous disease. There is mild atelectasis and scarrin g in the inferior lungs. There is a trace right pleural effusion. The heart size is normal. No perica rdial effusion. There are coronary artery calcifications. There is mediastinal and bilateral hilar ly mphadenopathy. A 4.8 x 4.1 cm left hilar node previously measured 4.6 x 3.8 cm. There is a small slid ing hiatal hernia. There is severe thoracic spondylosis. ABDOMEN/PELVIS CT: There are cysts in the liver measuring up to 2.3 cm. The gallbladder, spleen, pancreas, and right adr enal gland are normal. There is a 2.3 x 1.7 cm mass in left adrenal gland without change. Right kidne y is absent. Left kidney is normal. The prostate is severely enlarged. There is diverticulosis of the colon without evidence of diverticulitis. There are no dilated loops of bowel. The appendix is matt l. There are no pathologically enlarged lymph nodes. There is no free intraperitoneal fluid. There is a left inguinal hernia containing fat. There are chronic bilateral L5 pars defects. There is 8 mm an terolisthesis of L5 on S1. There is severe lumbar spondylosis. IMPRESSION: 1. Stable lung nodules, chest lymphadenopathy, and left adrenal mass, consistent with metastatic dise ase. Reviewed, dictated and finalized at location A. IMPRESSION: 1. Stable lung nodules, chest lymphadenopathy, and left adrenal mass, consisten t with metastatic disease.
[2022-09-12 09:03] LABS: Estimated Glomerular Filt Rate > 60
== END 2022-09-12 08:36 | disposition home or self-care (01) ==
PROVIDERS: PCP Family Medicine Adolescent Medicine; Visit Provider Internal Medicine Medical Oncology
DX: C64.9 Malignant neoplasm of unspecified kidney, except renal pelvis (principal); C78.01 Secondary malignant neoplasm of right lung; C78.02 Secondary malignant neoplasm of left lung
CPT/HCPCS: 71260; 74177; Q9967

== ENCOUNTER 2022-10-30 13:00 | Outpatient (CLI) | payer MEDICARE, SELFPAY ==
--- NOTE | ~2022-10-30 | MR_ITS ---
EXAMINATION: MR brain/brain stem wo/w con DATE: 10/30/2022 13:59 INDICATION: Primary malignant neoplasm of kidney with metastases. Dizziness. TECHNIQUE: Magnetic resonance imaging (MRI) of the brain and brainstem was performed without and with 20 mL MultiHance intravenous contrast. COMPARISON: Head CT 04/15/2022 FINDINGS: There are scattered areas of nonspecific increased T2-weighted signal intensity in the cere bral white matter. There is no intracranial hemorrhage, acute infarction, or abnormal intracranial ma ss lesion. The ventricles are normal in size. There is mucosal thickening in the paranasal sinuses. T he orbits are normal. There are small right and trace left mastoid effusions. IMPRESSION: 1. No evidence of metastatic disease. 2. Mild nonspecific cerebral white matter disease, which likely represents chronic small vessel ische raquel disease. Reviewed, dictated and finalized at location A. RESCUER IMPRESSION: 1. No evidence of metastatic disease. 2. 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
== END 2022-10-30 13:01 | disposition home or self-care (01) ==
PROVIDERS: PCP Family Medicine Adolescent Medicine; Visit Provider Internal Medicine Medical Oncology
DX: C64.9 Malignant neoplasm of unspecified kidney, except renal pelvis (principal); C78.01 Secondary malignant neoplasm of right lung; C78.02 Secondary malignant neoplasm of left lung; R42 Dizziness and giddiness; R93.0 Abnormal findings on diagnostic imaging of skull and head, not elsewhere classified
CPT/HCPCS: 70553; A9577

== ENCOUNTER 2023-01-01 08:03 | Outpatient (CLI) | payer MEDICARE, SELFPAY ==
--- NOTE | ~2023-01-01 | CT_ITS ---
EXAMINATION: CT chest abdomen pelvis w con DATE: 01/01/2023 11:12 INDICATION: Primary malignant neoplasm of kidney with metastasis. TECHNIQUE: Computed tomography (CT) of the chest, abdomen, and pelvis was performed with 100 mL Omnip aque 350 intravenous contrast. Automated exposure control and iterative reconstruction technique were employed. The dose-length product was 1408.70 mGy-cm. COMPARISON: CT 09/12/2022 FINDINGS: CHEST CT: There is mild scarring at the lung apices. There is mild atelectasis bilaterally. Again seen is septa l thickening in the inferior lungs. A calcification in left lung nodule is consistent with old granul omatous disease. There are a few scattered nodules in the lungs measuring up to 7 mm, stable from . The heart size is normal. There are coronary artery calcifications. No pericardial effusion. Again seen is mediastinal and bilateral hilar lymphadenopathy. For example, a left hilar dwayne mass measures 4.8 x 3.7 cm without significant change. There is a small sliding hiatal hernia. There is se paulino thoracic spondylosis. ABDOMEN/PELVIS CT: There are cysts in the liver measuring up to 2.3 cm. The gallbladder, spleen, pancreas, and right adr enal gland are normal. There are changes of right nephrectomy. There are masses in left adrenal gland measuring up to 2.0 cm without change. There are peripelvic cysts in left kidney measuring up to 1.9 cm. The prostate is moderately enlarged. There is a left inguinal hernia containing fat. There is di verticulosis of the colon without evidence of diverticulitis. There are no dilated loops of bowel. Th e appendix is normal. There are no pathologically enlarged lymph nodes. There is no free intraperiton eal fluid. There are chronic bilateral L5 pars defects. There is 8 mm anterolisthesis of L5 on S1. Th ere is severe lumbar spondylosis. IMPRESSION: 1. Stable lung nodules, chest lymphadenopathy, and left adrenal mass, consistent with metastatic dise ase. Reviewed, dictated and finalized at location A. T MAKER IMPRESSION: 1. Stable lung nodules, chest lymphadenopathy, and left adrenal mass, consisten t with metastatic disease.
[2023-01-01 16:34] LABS: Estimated Glomerular Filt Rate > 60
== END 2023-01-01 08:04 | disposition home or self-care (01) ==
PROVIDERS: PCP Family Medicine Adolescent Medicine
DX: C64.9 Malignant neoplasm of unspecified kidney, except renal pelvis (principal); C78.01 Secondary malignant neoplasm of right lung; C78.02 Secondary malignant neoplasm of left lung; R91.8 Other nonspecific abnormal finding of lung field
CPT/HCPCS: 71260; 74177; Q9967

== ENCOUNTER 2023-04-05 08:58 | Outpatient (CLI) | payer MEDICARE, SELFPAY ==
--- NOTE | ~2023-04-05 | CT_ITS ---
EXAMINATION: CT chest abdomen pelvis w con DATE: 04/05/2023 10:01 INDICATION: Malignant neoplasm of kidney. TECHNIQUE: Computed tomography (CT) of the chest, abdomen, and pelvis was performed with 100 mL Omnip aque 350 intravenous contrast. Automated exposure control and iterative reconstruction technique were employed. The dose-length product was 1600.48 mGy-cm. COMPARISON: CT chest, abdomen, and pelvis 01/01/2023 FINDINGS: CHEST CT: There is mild scarring at the lung apices. There are trace pleural effusions. Again seen is septal th ickening in the inferior lungs. There are a few scattered nodules in the lungs measuring up to 7 mm. The heart size is normal. No pericardial effusion. There are coronary artery calcifications. There is mediastinal and bilateral hilar lymphadenopathy. For example, a left hilar dwayne mass measures 4.4 x 4.5 cm that previously measured 4.2 x 3.7 cm. A 2.8 x 2.4 cm right hilar node previously measured 2. 9 x 2.4 cm. There is severe thoracic and cervical spondylosis. ABDOMEN/PELVIS CT: There are cysts in the liver measuring up to 2.5 cm. The gallbladder, spleen, and pancreas are normal . There is a small sliding hiatal hernia. Right adrenal gland is normal. There are changes of right n ephrectomy. There are masses in left adrenal gland measuring up to 17 mm without change. Left kidney is normal. The prostate is severely enlarged. There is diverticulosis of the colon without evidence o f diverticulitis. The appendix is normal. There are no dilated loops of bowel. There are no pathologi flaco enlarged lymph nodes. There is no free intraperitoneal fluid. There is a left inguinal hernia c ontaining fat. There is severe lumbar spondylosis. There are chronic bilateral L5 pars defects. There is 7 mm anterolisthesis of L5 on S1. IMPRESSION: 1. Stable lung nodules, chest lymphadenopathy, and left adrenal masses, consistent with metastatic di sease. Reviewed, dictated and finalized at location A. IMPRESSION: 1. Stable lung nodules, chest lymphadenopathy, and left adrenal masses, consist ent with metastatic disease.
[2023-04-05 09:51] LABS: Estimated Glomerular Filt Rate 59
== END 2023-04-05 08:59 | disposition home or self-care (01) ==
LOC: ANHIMG 09:02
PROVIDERS: PCP Family Medicine Adolescent Medicine; Visit Provider Nurse Practitioner Family
DX: C64.9 Malignant neoplasm of unspecified kidney, except renal pelvis (principal); C78.01 Secondary malignant neoplasm of right lung; C78.02 Secondary malignant neoplasm of left lung; R91.8 Other nonspecific abnormal finding of lung field
CPT/HCPCS: 71260; 74177; Q9967

== ENCOUNTER 2023-07-09 07:46 | Outpatient (CLI) | payer MEDICARE, SELFPAY ==
--- NOTE | ~2023-07-09 | CT_ITS ---
EXAMINATION: CT chest abdomen pelvis w con DATE: 07/09/2023 08:30 INDICATION: Malignant neoplasm of kidney. TECHNIQUE: Computed tomography (CT) of the chest, abdomen, and pelvis was performed with 100 mL Omnip aque 350 intravenous contrast. Automated exposure control and iterative reconstruction technique were employed. The dose-length product was 1561.87 mGy-cm. COMPARISON: CT chest, abdomen, and pelvis 04/05/2023 FINDINGS: CHEST CT: There are chronic peripheral reticular opacities in the inferior lungs. A calcified left lung nodule and calcified left hilar lymph nodes are consistent with old granulomatous disease. There is mild sca rring at the lung apices. There are a few scattered nodules in the lungs measuring up to 8 mm in left lower lobe. There is bilateral hilar and mediastinal lymphadenopathy. For example, a left hilar joyce l mass measures 5.3 x 4.8 cm that previously measured 4.9 x 5.0 cm. There are trace pleural effusions . The heart size is normal. There are coronary artery calcifications. No pericardial effusion. There is a small sliding hiatal hernia. There is severe cervical and thoracic spondylosis. ABDOMEN/PELVIS CT: There are cysts in the liver measuring up to 2.5 cm. The gallbladder, spleen, pancreas, and right adr enal gland are normal. There are masses in left adrenal gland measuring up to 2.8 x 1.7 cm that previ ously measured 2.7 x 1.4 cm. There are changes of right nephrectomy. There are peripelvic cysts in le ft kidney. The prostate is moderately enlarged. There is diverticulosis of the colon without evidence of diverticulitis. There are no dilated loops of bowel. The appendix is normal. Aortic atheroscleros is is noted. There are no pathologically enlarged lymph nodes. There is no free intraperitoneal fluid . There is prominent fat in left inguinal canal that may be a hernia. There are chronic bilateral L5 pars defects. There is 7 mm anterolisthesis of L5 on S1. There is severe lumbar spondylosis. Lumbar d extroscoliosis is noted. IMPRESSION: 1. Stable lung nodules, chest lymphadenopathy, and left adrenal masses, consistent with metastatic di sease. Reviewed, dictated and finalized at location A. IMPRESSION: 1. Stable lung nodules, chest lymphadenopathy, and left adrenal masses, consist ent with metastatic disease.
[2023-07-09 08:20] LABS: Estimated Glomerular Filt Rate > 60
== END 2023-07-09 07:47 | disposition home or self-care (01) ==
LOC: ANHIMG 07:48
PROVIDERS: PCP Family Medicine Adolescent Medicine; Visit Provider Nurse Practitioner Family
DX: C64.9 Malignant neoplasm of unspecified kidney, except renal pelvis (principal); C78.01 Secondary malignant neoplasm of right lung; C78.02 Secondary malignant neoplasm of left lung
CPT/HCPCS: 71260; 74177; Q9967

== ENCOUNTER 2023-07-24 08:51 | Outpatient (CLI) | payer MEDICARE, SELFPAY ==
[2023-07-21 10:00] VITALS: BMI 33.2
--- NOTE | 2023-07-21 10:03 | PC.NURSE ---
Pre Radiology instructions Report to the outpatient [facility] on date __07/24/23___ at time __9:00AM for procedure Time: _11:00AM___ YOU MAY BE MONITORED AT HOSPITAL FOR UP TO 4 HOURS AFTER YOUR PROCEDURE. A visitor will be allowed to accompany the patient into the hospital. You and your visitor will be asked to self-screen and do not enter if you have any COVID symptoms. A mask is OPTIONAL within the hospital. Patients are to have no food or drink 6 hours prior to procedure time Driving will be restricted after the procedure, you must have a person to drive you home. Labs will be drawn in preop area and once reviewed, you will be taken to radiology area for procedure. When the procedure is completed, you will be taken to outpatient where you will be monitored for several hours. You may have one visitor in this area. Other than holding anti-coagulants, patient may take other medication(s) as scheduled. Prior to your appointment date patients are instructed to hold anti-coagulants after discussing with ordering provider to stop. If unable to discontinue anti-coagulants please notify radiologist. ? No aspirin or warfarin (Coumadin) for 7 days prior to the procedure. ? No clopidogrel (Plavix), ticagrelor (Brilinta), prasugrel (Effient) or dabigatran (Pradaxa) for 5 days prior to the procedure. ? No rivaroxaban (Xarelto), apixaban (Eliquis), dipyridamole (Aggrenox or Persantine) or cilostazol (Pletal) for 2 days prior to the procedure. Medications to discontinue per physician: __NONE Date to take last dose: Please leave all valuables, including medications, at home the day of procedure. The hospital will not accept responsibility for valuables. Wear comfortable, loose fitting clothing.? Follow any additional instructions given to you from ordering provider. Telephone instructions given to __PATIENT & WIFE and asked if any additional questions and then verbalized understanding. Patient advised to call scheduling provider office or registration scheduling [phone] if any additional questions.
[2023-07-24] VITALS (9 sets, daily range): BP systolic 118–145; BP diastolic 52–85; PULSE 65–74; RESP 18–20; TEMP 36.5; O2SAT 98; BMI 33.3
--- NOTE | ~2023-07-24 | CT_ITS ---
EXAMINATION: CT biopsy abdomen percutaneous DATE: 07/24/2023 12:07 INDICATION: Left adrenal mass. TECHNIQUE: The procedure including the risks, benefits, and alternatives was discussed with the patie nt. Risks discussed included bleeding and infection. The patient verbalized understanding of the risk s and agreed to proceed. The skin overlying the liver was prepped and draped in usual sterile fashio n. Anesthetic was administered with 1% lidocaine subcutaneously. A 16 gauge outer needle was advanc ed under CT guidance into the liver. An 18 gauge core biopsy needle was then used to obtain 3 core bi opsy specimens. The mA was adjusted according to patient size. Iterative reconstruction technique was employed. The dose-length product was 175.37 mGy-cm. The needle was removed and the entry site was c leaned and dressed. There were no immediate complications. FINDINGS: CT images demonstrate the outer needle tip adjacent to a 2.2 cm mass of left adrenal gland. IMPRESSION: 1. CT-guided core needle biopsy of a 2.2 cm left adrenal mass. Reviewed, dictated and finalized at location A.
[2023-07-24 09:57] LABS: Mean Platelet Volume 9.6 fl (7.4-10.4); Platelet Count Result 196 k/mm3 (150-375)
[2023-07-24 10:10] LABS: INR 1.1; Prothrombin Time 14.3 Seconds (11.1-14.7)
== END 2023-07-24 16:00 | disposition home or self-care (01) ==
PROVIDERS: PCP Family Medicine Adolescent Medicine; Referring Provider Internal Medicine Medical Oncology; Visit Provider Radiology Diagnostic Radiology
PROC: BW20ZZZ Computerized Tomography (CT Scan) of Abdomen (ICD-10-PCS; CPT 77012; principal; 2023-07-24 11:00)
DX: C34.91 Malignant neoplasm of unspecified part of right bronchus or lung (principal); C34.92 Malignant neoplasm of unspecified part of left bronchus or lung; D35.02 Benign neoplasm of left adrenal gland
CPT/HCPCS: 36415; 49180; 77012; 85049; 85610; 88305; 88342

== ENCOUNTER 2023-10-20 13:42 | Outpatient (CLI) | payer MEDICARE, SELFPAY ==
--- NOTE | ~2023-10-20 | US_ITS ---
EXAMINATION:US venous doppler LE BI INDICATION:Swelling of the lower legs. TECHNIQUE: Multiple grayscale, color flow and Doppler images of the right and left lower extremity de ep venous systems were obtained and reviewed. COMPARISON:No prior studies for comparison. FINDINGS: The common femoral, superficial femoral and popliteal veins demonstrate normal respiratory variation, augmentation and compressibility. Color flow is also seen within the posterior tibial, pe roneal, greater saphenous and profunda veins. There is superficial venous thrombosis of the right les ser saphenous vein proximal to the junction. IMPRESSION: 1: No lower extremity deep venous thrombosis. 2: Superficial venous thrombosis of the right lesser saphenous vein. Reviewed, dictated and finalized at location B. HANDLER
== END 2023-10-20 13:43 | disposition home or self-care (01) ==
PROVIDERS: PCP Family Medicine Adolescent Medicine; Visit Provider Internal Medicine Medical Oncology
DX: M79.89 Other specified soft tissue disorders (principal); I82.811 Embolism and thrombosis of superficial veins of right lower extremity
CPT/HCPCS: 93970

== ENCOUNTER 2023-10-30 08:48 | Outpatient (CLI) | payer MEDICARE, SELFPAY ==
--- NOTE | ~2023-10-30 | CT_ITS ---
Clinical Indication: Metastatic neoplasm CT Scan of the Chest, Abdomen, and Pelvis with Contrast: Technique: Contiguous sections were acquired throughout the chest, abdomen, and pelvis after intraven ous administration of 100 cc of Omnipaque 350. Dose reduction technique was used on this scan by eris canoing automated exposure control and iterative reconstruction technique. The dose-length product (DL P) was 1619.79 mGy-cm. COMPARISON: 07/09/2023 Findings: Enlarged AP window lymph node is similar to prior exam. Bilateral hilar/perihilar masses, left larger than right, similar to prior exam. Dominant lesion at the left perihilar region measures 4.8 cm in d iameter. No aortic aneurysm or dissection. No central pulmonary embolus seen. Peripherally calcified subcarinal lymph node is unchanged. There is no evidence of pleural or pericardial effusion. Stable 8 mm left upper lobe pulmonary nodule noted (axial image 38). Stable 4 mm right upper lobe pul monary nodule (axial image 37). 9 mm left lower lobe pulmonary nodules unchanged (axial image 79). Ad ditional 9 mm left lower lobe pulmonary nodule more inferiorly is also unchanged (axial image 87). Hepatic cysts are unchanged. Patient is status post right nephrectomy. The spleen, pancreas, gallblad jenny, right adrenal and, and left kidney are within normal limits. There are multiple probable left ad renal nodules, largest measuring up to 2.2 cm, which appears to be increased from prior exam. There a re atherosclerotic calcifications of the aorta. No lymphadenopathy. No bowel obstruction or bowel wall thickening. There is no evidence to suggest acute appendicitis. Urinary bladder is unremarkable. Prostate gland and seminal vesicles are unremarkable. No ascites. Lytic lesion in the left iliac bone is mild increase in size from prior exam (axial image 203). 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 Impression: Metastatic disease, as detailed above is similar in distribution to prior exam. There has been mild i nterval increase in size of left adrenal nodule and lytic lesion in the left iliac bone, compatible w ith mild progression of disease. Pulmonary nodules, perihilar/hilar lymphadenopathy and mediastinal l ymphadenopathy are stable from prior exam. Status post right nephrectomy. Reviewed, dictated and finalized at location M. 'S ASSISTANT Impression: Metastatic disease, as detailed above is similar in distribution to prior exam. There has been mild interval increase in size of left adrenal nodule and lytic lesion in the left iliac bone, compatible with mild progression of disease. Pu lmonary nodules, perihilar/hilar lymphadenopathy and mediastinal lymphadenopath y are stable from prior exam. Status post right nephrectomy.
[2023-10-30 09:11] LABS: Estimated Glomerular Filt Rate 59
== END 2023-10-30 08:49 | disposition home or self-care (01) ==
PROVIDERS: PCP Family Medicine Adolescent Medicine; Visit Provider Nurse Practitioner Family
DX: C78.01 Secondary malignant neoplasm of right lung (principal); C78.02 Secondary malignant neoplasm of left lung; C64.9 Malignant neoplasm of unspecified kidney, except renal pelvis
CPT/HCPCS: 71260; 74177; Q9967